=== PATIENT | male | born 1955 | race Caucasian/White ===

== ENCOUNTER 2025-08-28 15:52 | Emergency (ER) | payer OTHER ==
[2025-08-28 17:20] LABS: #Basophils 0.04 10x3/uL (0.0-0.2); #Eosinophils 0.17 10x3/uL (0.0-0.5); #Monocytes 0.64 10x3/uL (0.0-1.1); #Neutrophils 2.74 10x3/uL (1.5-8.4); %Basophils 0.7 % (0.0-2.0); %Eosinophils 3.0 % (0.0-6.0); %Lymphocytes 36.1 % (18.0-47.0); %Monocytes 11.3 % (0.0-10.0); %Neutrophils 48.5 % (40.0-75.0); Hematocrit 39.6 % (38.8-50.0); Hemoglobin 13.8 g/dL (13.5-17.5); Mean Corpuscular Hemoglobin 29.9 pg (27.0-33.0); Mean Corpuscular Volume 85.7 fL (81.2-95.1); Platelet Count 131 10x3/uL (150-450); Red Blood Cell (RBC) Count 4.62 10x6/uL (4.32-5.72); White Blood Cell (WBC) Count 5.65 10x3/uL (3.5-10.5)
[2025-08-28 17:32] LABS: Troponin I 0.019 ng/mL (< 0.028)
[2025-08-28 17:37] LABS: ALT (SGPT) 19 U/L (Less than 45); AST (SGOT) 34 U/L (11-34); Albumin 3.5 g/dL (3.1-4.5); Alkaline Phosphatase 72 U/L (40-110); Anion Gap 11 mmol/L (10-20); BUN (Urea Nitrogen) 20 mg/dL (8.4-25.7); Bilirubin, Total 0.5 mg/dL (0.3-1.2); Calc. Creatinine Clearance 0 mL/min (70-130); Calcium 8.8 mg/dL (7.8-10.44); Carbon Dioxide 21 mmol/L (23-31); Chloride 110 mmol/L (98-107); Globulin 3.3 g/dL (2.4-3.5); Glucose 90 mg/dL (80-115); Potassium 4.2 mmol/L (3.5-5.1); Sodium 138 mmol/L (136-145)
[2025-08-28 19:47] LABS: Glucose, Urine (Dipstick) Normal (Negative); Leukocyte Negative (Negative); Protein, Urine (Dipstick) Negative (Neg-Trace); Specific Gravity, Urine 1.010 (1.005-1.030)
[2025-08-28 20:13] LABS: Bacteria/HPF 1+ HPF (None Seen); CAUTI Indications for Culture Dysuria,urgency,freq; RBC/HPF 0-3 HPF (0-3); WBC/HPF 0-3 HPF (0-3)
[2025-08-28] MEDS ORDERED: Ketorolac Tromethamine 30 MG (1 mL) VIAL ONE (20:13)
[2025-08-28 20:15] LABS: Urine Culture Reflex No No
[2025-08-28 20:56] LABS: Troponin I 0.020 ng/mL (< 0.028)
== END 2025-08-28 21:20 | disposition home or self-care (01) ==
LOC: CSHERS 15:52 → EEVIPCON 15:52 → CSHERS 21:20
DX: R07.89 Other chest pain (principal)
CPT/HCPCS: 36415; 71045; 80053; 81001; 83690; 83880; 84484; 85025; 93005; 96374; J1885